=== PATIENT | female | born 1945 | race Caucasian/White ===

== ENCOUNTER 2019-02-21 10:18 | Inpatient (IN) | payer MEDICARE ==
[~2019-02-21] VITALS: Ht 162.6 cm; Wt 62.6 kg
[2019-02-21] MEDS ORDERED: CYAN500T4 PO (10:56)
[2019-02-21] MEDS ORDERED: CHOL100044 PO (10:56)
[2019-02-21] MEDS ORDERED: BIOT800T PO (10:56)
[2019-02-21] MEDS ORDERED: ATOR10TA PO (10:56)
[2019-02-21] MEDS ORDERED: ZOLPIDEM TARTRATE 5 MG TABLET PO PRN (11:00)
[2019-02-21] MEDS ORDERED: MAG HYDROX/AL HYDROX/SIMETH 30 ML UDC PO PRN (11:00)
[2019-02-21] MEDS ORDERED: MAGNESIUM HYDROXIDE 30 ML UDC PO PRN (11:00)
[2019-02-21] MEDS ORDERED: LORAZEPAM 0.5 MG TABLET PO PRN (11:00)
[2019-02-21] MEDS: LORAZEPAM 1 MG TABLET PO PRN (12:04)
[2019-02-21] MEDS: busPIRone 5 MG TABLET PO SCH ×2 (13:02→16:23)
[2019-02-21] MEDS: ESCITALOPRAM OXALATE (10 MG) 10 MG TABLET PO SCH (13:02)
[2019-02-21] MEDS: ARIPIPRAZOLE 2 MG TABLET PO SCH (13:02)
[2019-02-21 16:00] VITALS: BP 109/71
[2019-02-21 20:00] VITALS: BP 116/68
[2019-02-22 07:39] LABS: ALANINE AMINOTRANSFERASE 23 U/L (12-78); ALBUMIN 3.2 g/dL (3.4-5.0); ALKALINE PHOSPHATASE 72 U/L (46-116); ASPARTATE AMINOTRANSFERASE 15 U/L (15-37); BILIRUBIN,TOTAL 0.5 mg/dL (0.2-1.0); CALCIUM, SERUM 8.8 mg/dL (8.5-10.1); CARBON DIOXIDE 26 mmol/L (21-32); CHLORIDE 107 mmol/L (98-107); CREATININE 0.8 mg/dL (0.6-1.3); GLUCOSE 90 mg/dL (74-106); POTASSIUM 4.4 mmol/L (3.5-5.1); SODIUM SERUM 141 mmol/L (136-145); TOTAL PROTEIN, SERUM 6.5 g/dL (6.4-8.2); UREA NITROGEN, BLOOD 16 mg/dL (7-18)
[2019-02-22 07:51] LABS: CHOLESTEROL 142 mg/dL (<200); HDL CHOLESTEROL 63 mg/dL (40-60); LDL 70 mg/dL (0-99); TRIGLYCERIDES 73 mg/dL (30-150)
[2019-02-22 07:56] LABS: CREATININE 0.8 mg/dL (0.6-1.3)
[2019-02-22 08:00] VITALS: BP 118/62
[2019-02-22] MEDS: ARIPIPRAZOLE 2 MG TABLET PO SCH (09:24)
[2019-02-22] MEDS: busPIRone 5 MG TABLET PO SCH ×3 (09:24→16:46)
[2019-02-22] MEDS: ESCITALOPRAM OXALATE (10 MG) 10 MG TABLET PO SCH (09:24)
[2019-02-22] MEDS: LORAZEPAM 1 MG TABLET PO PRN (09:28)
[2019-02-22 16:00] VITALS: BP 117/73
[2019-02-22] MEDS: CYANOCOBALAMIN 500 MCG TABLET PO SCH (16:44)
[2019-02-22] MEDS: CHOLECALCIFEROL (VITAMIN D 3) 400 UNIT TABLET PO SCH (16:45)
[2019-02-22] MEDS: ACETAMINOPHEN 325 MG TABLET PO PRN (18:42)
[2019-02-22 20:00] VITALS: BP 101/52
[2019-02-22 20:31] VITALS: BP 101/52
[2019-02-22] MEDS: ATORVASTATIN 10 MG TABLET PO SCH (21:37)
[2019-02-23 08:00] VITALS: BP 140/78
[2019-02-23] MEDS: ARIPIPRAZOLE 2 MG TABLET PO SCH (08:00)
[2019-02-23] MEDS: CYANOCOBALAMIN 500 MCG TABLET PO SCH (08:00)
[2019-02-23] MEDS: ESCITALOPRAM OXALATE (10 MG) 10 MG TABLET PO SCH (08:00)
[2019-02-23] MEDS: busPIRone 5 MG TABLET PO SCH ×3 (08:00→16:48)
[2019-02-23] MEDS: CHOLECALCIFEROL (VITAMIN D 3) 400 UNIT TABLET PO SCH (08:01)
[2019-02-23] MEDS: LORAZEPAM 1 MG TABLET PO PRN (13:45)
[2019-02-23 16:00] VITALS: BP 137/65
[2019-02-23 20:00] VITALS: BP 111/56
[2019-02-23] MEDS: ATORVASTATIN 10 MG TABLET PO SCH (21:46)
[2019-02-24 08:00] VITALS: BP 120/66
[2019-02-24] MEDS: CYANOCOBALAMIN 500 MCG TABLET PO SCH (08:38)
[2019-02-24] MEDS: LORAZEPAM 1 MG TABLET PO PRN (08:38)
[2019-02-24] MEDS: CHOLECALCIFEROL (VITAMIN D 3) 400 UNIT TABLET PO SCH (08:38)
[2019-02-24] MEDS: ESCITALOPRAM OXALATE (10 MG) 10 MG TABLET PO SCH (08:38)
[2019-02-24] MEDS: ARIPIPRAZOLE 2 MG TABLET PO SCH (08:38)
[2019-02-24] MEDS: busPIRone 5 MG TABLET PO SCH ×3 (08:38→16:52)
[2019-02-24] MEDS: BIOTIN PO SCH (12:52)
[2019-02-24] MEDS: ONDANSETRON 4 MG TAB.RAPDIS PO PRN (12:54)
[2019-02-24 16:10] VITALS: BP 122/62
[2019-02-24 19:57] VITALS: BP 118/61
[2019-02-24 20:16] VITALS: BP 118/61
[2019-02-24] MEDS: ATORVASTATIN 10 MG TABLET PO SCH (21:12)
[2019-02-25 08:00] VITALS: BP 115/68
[2019-02-25] MEDS: CHOLECALCIFEROL (VITAMIN D 3) 400 UNIT TABLET PO SCH (08:53)
[2019-02-25] MEDS: CYANOCOBALAMIN 500 MCG TABLET PO SCH (08:53)
[2019-02-25] MEDS: busPIRone 5 MG TABLET PO SCH ×3 (08:53→16:05)
[2019-02-25] MEDS: ESCITALOPRAM OXALATE (10 MG) 10 MG TABLET PO SCH (08:53)
[2019-02-25] MEDS: ARIPIPRAZOLE 2 MG TABLET PO SCH (08:53)
[2019-02-25] MEDS: BIOTIN PO SCH (08:54)
[2019-02-25] MEDS: ACETAMINOPHEN 325 MG TABLET PO PRN (12:11)
[2019-02-25 16:00] VITALS: BP 122/72
[2019-02-25 20:00] VITALS: BP 120/70
[2019-02-25 20:04] VITALS: BP 120/70
[2019-02-25] MEDS: ATORVASTATIN 10 MG TABLET PO SCH (21:17)
[2019-02-26] MEDS: ONDANSETRON 4 MG TAB.RAPDIS PO PRN (02:52)
[2019-02-26 08:00] VITALS: BP 122/59
[2019-02-26] MEDS: CHOLECALCIFEROL (VITAMIN D 3) 400 UNIT TABLET PO SCH (08:29)
[2019-02-26] MEDS: ESCITALOPRAM OXALATE (10 MG) 10 MG TABLET PO SCH (08:29)
[2019-02-26] MEDS: CYANOCOBALAMIN 500 MCG TABLET PO SCH (08:29)
[2019-02-26] MEDS: ARIPIPRAZOLE 2 MG TABLET PO SCH (08:29)
[2019-02-26] MEDS: busPIRone 5 MG TABLET PO SCH (08:30)
[2019-02-26] MEDS: BIOTIN PO SCH (08:31)
== END 2019-02-26 10:25 | disposition home or self-care (01) | DRG 885 ==
LOC: GPS 10:18
PROVIDERS: ADMIT Psychiatry & Neurology Psychiatry; ATTEND Student in an Organized Health Care Education/Training Program
DX: F33.2 Major depressive disorder, recurrent severe without psychotic features (principal); R45.851 Suicidal ideations; E78.5 Hyperlipidemia, unspecified; F41.9 Anxiety disorder, unspecified; Z81.8 Family history of other mental and behavioral disorders
CPT/HCPCS: 36415; 80053-TC; 80061-TC; 82565-TC; 87081-TC; Q0162